=== PATIENT | female | born 1940 | race Caucasian/White ===

== ENCOUNTER 2021-05-02 17:14 | Emergency (ER) | payer OTHER ==
[~2021-05-02] VITALS: Ht 167.6 cm; Wt 83.9 kg
[2021-05-02 17:17] VITALS: BP 140/83
[2021-05-02] MEDS ORDERED: HYDROcodone/APAP 5/325 MG 1 TAB TAB PO ONE (17:25)
--- NOTE | 2021-05-02 17:30 | NUR ---
80 y/o F c/o left ankle pain s/p attempting to get out of bed, denies fall. PMH: dm, htn
--- NOTE | 2021-05-02 17:53 | NUR ---
XR AT BEDSIDE FOR PORTABLE XR
--- NOTE | 2021-05-02 19:14 | NUR ---
Pt report given to DAYSI LEPE. Transfer of care at this time.
--- NOTE | 2021-05-02 19:19 | NUR ---
PT LAYING IN BED LOCKED IN LOWEST POSITION W X2 SIDERAILS UP FOR PT SAFETY. PT CONNECTED TO MONITOR W VSS. PT HAS ONGOING L LEG PAIN 8, LEG IS IN A STRAIGHT STILL POSITION. BREATHING EVEN AND UNLABORED. NAD NOTED, WILL CONTINUE TO MONITOR.
[2021-05-02] MEDS ORDERED: PROPOFOL 200 MG/20 ML VIAL IV ONE (19:40)
[2021-05-02] MEDS ORDERED: NACL 0.9% 1,000 ML IV ONE (19:40)
[2021-05-02] MEDS ORDERED: KETAMINE 500 MG/5 ML VIAL IVP ONE (19:40)
--- NOTE | 2021-05-02 20:05 | NUR ---
MODERATE SEDATION FOR CLOSED REDUCTION OF L ANKLE FRACTURE DISLOCATION STARTED.
--- NOTE | 2021-05-02 20:10 | NUR ---
PROCEDURE FOR CLOSED REDUCTION OF L ANKLE FRACTURE DISLOCATION ENDED.
--- NOTE | 2021-05-02 20:20 | NUR ---
PT BACK TO BASELINE AFTER SEDATION. VSS.
--- NOTE | 2021-05-02 21:17 | NUR ---
PT C/O OF ONGOING LKEG PAIN 10/05, TREVERD MADE AWARE.
--- NOTE | 2021-05-02 21:34 | NUR ---
PT ASSISTED TO BED FREDERICK.
[2021-05-02] MEDS ORDERED: MORPHINE SULFATE 4 MG/ML SYR IVP ONE (21:35)
--- NOTE | 2021-05-02 21:39 | NUR ---
XRAY AT BEDSIDE.
--- NOTE | 2021-05-02 22:14 | NUR ---
PT APPEARS TO BE RESTING W EYES CLOSED IN SUPINE POSITION. BREATHING EVEN AND UNLABORED. VSS. NAD NOTED, WILL CONTINUE TO MONITOR.
[2021-05-02] MEDS ORDERED: IBUP-2213 PO ×2 (22:30→22:38)
[2021-05-02] MEDS ORDERED: HYDR-5080 PO ×2 (22:30→22:38)
[2021-05-02] MEDS ORDERED: DOCU-299 PO ×2 (22:30→22:38)
[2021-05-02 23:06] VITALS: BP 131/89
--- NOTE | 2021-05-02 23:06 | NUR ---
Patient discharged with v/s stable. Written and verbal after care instructions given and explained. Patient alert, oriented and verbalized understanding of instructions. Wheel Chair Assisted with to car. All questions addressed prior to discharge. ID band removed. Patient advised to follow up with PMD. Rx of IBUPROFEN, NORCO, COLACE given. Patient educated on indication of medication including possible reaction and side effects. Opportunity to ask questions provided and answered.
== END 2021-05-02 23:06 | disposition home or self-care (01) ==
LOC: MED 17:14
DX: S82.892A Other fracture of left lower leg, initial encounter for closed fracture (principal); E11.9 Type 2 diabetes mellitus without complications; I10 Essential (primary) hypertension; E78.00 Pure hypercholesterolemia, unspecified; X50.9XXA Other and unspecified overexertion or strenuous movements or postures, initial encounter; Y93.89 Activity, other specified; Y92.89 Other specified places as the place of occurrence of the external cause; Y99.8 Other external cause status
CPT/HCPCS: 27780; 72170; 73590; 73610; 73630; 96361; 96374; 99152; 99285; J2270; J2704; J7030; Q0092